=== PATIENT | female | born 1950 | race Caucasian/White ===

== ENCOUNTER → 2020-10-27 | Outpatient (CLI) | payer MEDICARE, OTHER ==
--- NOTE | 2020-10-27 17:18 | KCIC ---
XR RIBS 2 VIEWS RT DATE: 10/27/2020 1:48 PM INDICATION: Reason: CONTUSION OF RT ANTERIOR RIB, FELL 2 DAYS AGO / Spl. Instructions: / History: COMPARISON: None available. FINDINGS: Chest: Heart size is within normal limits. No focal consolidations are seen. No evidence for pulmona ry edema, pleural effusion, or pneumothorax. Bones: Question right lateral ninth rib fracture. IMPRESSION: Question right lateral ninth rib fracture. Correlate for focal tenderness. Electronically signed by: Chirs Aguayo MD (10/27/2020 5:15 PM) [id number]
== END ==
LOC: KCIC 13:14
PROVIDERS: ATTEND Family Medicine
DX: S20.211A Contusion of right front wall of thorax, initial encounter (principal); X58.XXXA Exposure to other specified factors, initial encounter; Y93.89 Activity, other specified; Y92.89 Other specified places as the place of occurrence of the external cause; Y99.8 Other external cause status
CPT/HCPCS: 71100

== ENCOUNTER → 2020-11-16 | Outpatient (CLI) | payer MEDICARE, OTHER ==
--- NOTE | 2020-11-16 16:56 | KCIC ---
XR ABDOMEN 1V INDICATION: Epigastric pain 2 days. COMPARISON: None. FINDINGS: Nonobstructive bowel gas pattern. No free air. Limited view of the lower chest demonstrates no acute abnormality. No acute osseous abnormality. IMPRESSION: Nonobstructive bowel gas pattern. Electronically signed by: Chris Aguayo MD (11/16/2020 4:54 PM) [facility]
== END ==
LOC: KCIC 10:58
PROVIDERS: ATTEND Family Medicine
DX: R10.13 Epigastric pain (principal)
CPT/HCPCS: 74018